=== PATIENT | male | born 1970 | race Caucasian/White ===

== ENCOUNTER → 2020-12-04 14:54 | Outpatient (BNVA) | payer OTHER, SELFPAY | PROVIDERS: Visit Provider Nurse Practitioner Family | DX: Z20.828 Contact with and (suspected) exposure to other viral communicable diseases (principal) | CPT/HCPCS: 87400; 87635 ==

== ENCOUNTER → 2021-05-13 13:36 | Outpatient (BNVA) | payer OTHER, SELFPAY | PROVIDERS: Visit Provider Nurse Practitioner Family | DX: Z20.822 Contact with and (suspected) exposure to COVID-19 (principal) | CPT/HCPCS: 87635 ==

== ENCOUNTER 2021-05-20 11:22 | Outpatient (CLI) | payer OTHER, SELFPAY | END 2021-05-20 11:23 | disposition home or self-care (01) | PROVIDERS: PCP Family Medicine; Visit Provider Family Medicine | DX: B37.42 Candidal balanitis (principal); Z21 Asymptomatic human immunodeficiency virus [HIV] infection status; B37.2 Candidiasis of skin and nail; R63.4 Abnormal weight loss; R53.83 Other fatigue; Z76.89 Persons encountering health services in other specified circumstances | CPT/HCPCS: 36415; 80053; 80061; 84443; 85025; 86355; 86359; 86480; 87536 ==

== ENCOUNTER → 2021-05-28 10:42 | Outpatient (BNVA) | payer OTHER, SELFPAY | PROVIDERS: PCP Family Medicine; Visit Provider Family Medicine | DX: E11.65 Type 2 diabetes mellitus with hyperglycemia (principal); R11.2 Nausea with vomiting, unspecified; Z21 Asymptomatic human immunodeficiency virus [HIV] infection status | CPT/HCPCS: 80048; 83036 ==

== ENCOUNTER 2021-06-02 17:23 | Emergency (ER) | payer OTHER, SELFPAY ==
[2021-06-02 17:41] VITALS: BP 116/78; PULSE 108; RESP 18; TEMP 37.2; O2SAT 95
--- NOTE | 2021-06-02 18:31 | ECG_ITS ---
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 Measurements Intervals [place] Rate: 76 P: 52 OH: 183 QRS: 23 QRSD: 98 T: 87 QT: 392 QTc: 441 Interpretive Statements SINUS RHYTHM POSSIBLE RIGHT VENTRICULAR CONDUCTION DELAY [RSR (QR) IN V1/V2] ANTERIOR MYOCARDIAL INFARCTION , PROBABLY RECENT [40+ ms Q WAVE AND/OR ST/T ABNORMALITY IN V3/V4] No previous ECG available for comparison Electronically Signed On 06-03-2021 17:11:40 CDT by Antwon Vazquez M.D. [id number]
--- NOTE | 2021-06-03 01:13 | ED_ITS ---
Documented by User: JEAN-PAUL Qureshi 06/04/21 07:00 HPI - General Adult General: Chief complaint: General Medical Stated complaint: LOSS/VOICE, H/A, DIZZY, RECENT DX DIABETES Time Seen by Provider: 06/03/21 00:56 Source: patient Mode of arrival: ambulatory Limitations: no limitations History of Present Illness: HPI narrative: Patient is a nice 50-year-old male who presents to ED today with a main complaint of feeling fatigued. He also has a complaint of hoarseness. He is not having any difficulty swallowing or dysphagia. He states he is not having any pain currently. States he feels wobbly on my feet but was able to walk through the emergency department to his room without assistance and without difficulty. States I have trouble thin anay . Patient tells me he is a newly diagnosed diabetic and has not been checking his blood sugars at home. Onset (ago): day(s) Relieving factors: none Exacerbating factors: none Associated symptoms: Deny chest pain, confusion, diaphoresis, dyspnea, headach e(s), nausea, rash, palpitations, syncope or vomiting Review of Systems Const: Reports: fatigue; Denies: fever(s), chills, body aches, change in appetite, change in weight, night sweats or diaphoresis Eyes: Denies: change in vision, blurry vision, photophobia, floaters or seeing flashes ENMT: Reports: hoarseness; Denies: throat pain, uvular edema, enlarged tonsils, odynophagia, nasal discharge or nasal congestion Card: Denies: chest pain, palpitations, irregular heart rhythm, lighth eadedness, syncope or dyspnea on exertion Resp: Denies: dyspnea, productive cough or pain on inspiration GI: Denies: abdominal pain, nausea, vomiting, heartburn or diarrhea : Denies: difficulty urinating or dysuria Musc: Denies: neck pain, back pain or joint pain Skin/Breast: Denies: rash Neuro: Reports: difficulty communicating thoughts; Denies: headache(s), numbness in extremities, weakness in extremities, sensory changes, lack of coordination, frequent falls, dizziness, vertigo, confusion, behavioral changes, Slurred speech present or seizure-like activity [facility] ED PFSH: Medical History HIV positive Social History Smoking and tobacco status: never smoked Alcohol intake: current Alcohol intake frequency: holidays/special occasions only Physical Exam Const: COMMON NORMALS: no acute distress, average body habitus, patient oriented x3, no limitations, healthy appearing, alert and well nourished GENERAL APPEARANCE: cooperative ORIENTATION/CONSCIOUSNESS: Yes awake, Yes oriented to person, Yes oriented to place and Yes oriented to time HENMT: COMMON NORMALS: normocephalic and atraumatic HEAD & SCALP: normocephalic and atraumatic MOUTH: Normal oral and palatal mucosa present, lip normal and tongue normal THROAT: posterior oropharynx normal, tonsils normal and uvula midline; no uvular edema Neck/C-Spine: COMMON NORMALS: full ROM, no lymphadenopathy, supple and no meningeal signs Chest: COMMONS NORMALS: normal inspection of the chest Resp: COMMON NORMALS: normal respiratory effort and clear to auscultation bi laterally AUSCULTATION: clear to auscultation bilaterally Cardio: COMMON NORMALS: regular rate and regular rhythm RATE: regular rate RHYTHM: regular rhythm GI: COMMON NORMALS: Normal to inspection, nondistended, normoactive bowel sounds present, Soft to palpation, non-tender, No hepatosplenomegaly present and no masses PALPATION: Yes Soft to palpation and Yes No hepatosplenomegaly present : COMMON NORMALS: Yes no CVA tenderness BLADDER/KIDNEY EXAM: Yes no CVA tenderness Back/Pelvis: COMMON NORMALS: no CVA tenderness and thoracic and lumbar spine normal to inspection Extremity: COMMON NORMALS: normal to inspection, no calf tenderness and no pedal edema Neuro: BC COMA SCALE: document GCS findings [place] coma scale eye opening: Spontaneous Bc coma scale verbal response: Orientated Bc coma scale motor response: Obey commands Bc coma scale total score: 15 COMMON NORMALS: patient oriented x3 SENSORIUM/ORIENTATION: Yes alert, Yes oriented to person, Yes oriented to place and Yes oriented to time MENINGEAL SIGNS: Yes no meningeal signs Skin: COMMON NORMALS: no rashes or lesions noted GENERAL SKIN EXAM: no rashes or lesions noted Course Vital Signs: Vital signs: Vital Signs Temperature 98.8 F 06/03/21 03:53 Pulse Rate 81 06/03/21 03:53 Respiratory Rate 16 06/03/21 03:53 Blood Pressure 92/68 06/03/21 03:53 Pulse Oximetry 95 06/03/21 03:53 MDM - General Adult MDM Narrative: Medical decision making narrative: Care transferred to Dr. Baires at shift end pending work up. Lab Data: Labs: Lab Results 06/03/21 06/03/21 06/03/21 Range/Units 01:30 02:53 02:54 WBC 2.6 L (4.0-10.0) 10^3/ uL RBC 4.43 (4.1-5.3) 10^6/u L Hgb 12.9 (11.7-16.6) g/dL Hct 37.8 L (42.0-52.0) % MCV 85.3 (80-94) fl MCH 29.1 (28.0-34.0) pg MCHC 34.1 (30.0-36.0) g/dL RDW 11.9 L (12.1-15.1) % Plt Count 125 L (130-400) 10^3/c mm MPV 11.4 H (7.4-10.4) fL Neut % (Auto) 42.4 % Lymph % (Auto) 38.9 % [place] % (Auto) 16.4 % Eos % (Auto) 1.5 % Baso % (Auto) 0.4 % Neut # (Auto) 1.11 L (1.8-7.7) 10^3/u L Lymph # (Auto) 1.0 (0.8-4.8) 10^3/u L [place] # (Auto) 0.4 (0.2-0.9) 10^3/u L Eos # (Auto) 0.0 (0.0-0.8) 10^3/u L Baso # (Auto) 0.0 (0.0-0.1) 10^3/u L Nucleated RBC % (a uto) 0 % Nucleated RBCs # 0.0 /100WBC Specimen Type Arterial Sample Site Brachial, right ABG pH 7.41 (7.35-7.45) ABG pCO2 38.7 (35-45) mmHg ABG pO2 64.0 L (80.0-100.0) mmH g ABG HCO3 24.7 (22-26) mmol/L ABG O2 Saturation 93.2 ABG Base Excess 0.2 (-2.0-2.0) mmol/ L Marlon Test N/a A-a O2 Gradient 4.9 L (5-10) mmHg Hematocrit 42.5 (42-52) % Hgb O2 Saturation 92.1 L (95-100) % Carboxyhemoglobin 0.7 (0.4-20.1) %THgb Methemoglobin 0.4 (0.4-1.5) % Total Hemoglobin 13.9 L (14-18) g/dL Sodium 137.0 (131-143) mmol/L Potassium 3.9 (3.5-5.0) mmol/L Glucose 197.0 H (70-115) mg/dL Ionized Calcium 1.2 (1.1-1.4) mmol/L O2 Delivery Device Room air FiO2 21.0 % Senior C Software Engineer ID Rieri Chloride (98-107) mmol/L Carbon Dioxide (22-29) mmol/L Anion Gap (5-19) BUN (6-20) mg/dL Creatinine (0.7-1.2) mg/dL GFR Calculation (90-130) mL/min Calculated Osmolal ity (285-295) mOsm/k g Calcium (8.5-10.5) mg/dL Total Bilirubin (0.15-1.2) mg/dL AST (0-40) U/L ALT (0-41) U/L Alkaline Phosphata se (40-130) IU/L Total Protein (6.6-8.7) g/dL Albumin (3.5-5.2) g/dL Globulin (1.3-4.6) g/dL Serum Ketones (Negative) SARS-CoV-2 Ag (Rap id) Negative (Negative) 06/03/21 06/03/21 Range/Units 02:54 02:54 WBC (4.0-10.0) 10^3/ uL RBC (4.1-5.3) 10^6/u L Hgb (11.7-16.6) g/dL Hct (42.0-52.0) % MCV (80-94) fl MCH (28.0-34.0) pg MCHC (30.0-36.0) g/dL RDW (12.1-15.1) % Plt Count (130-400) 10^3/c mm MPV (7.4-10.4) fL Neut % (Auto) % Lymph % (Auto) % [place] % (Auto) % Eos % (Auto) % Baso % (Auto) % Neut # (Auto) (1.8-7.7) 10^3/u L Lymph # (Auto) (0.8-4.8) 10^3/u L [place] # (Auto) (0.2-0.9) 10^3/u L Eos # (Auto) (0.0-0.8) 10^3/u L Baso # (Auto) (0.0-0.1) 10^3/u L Nucleated RBC % (a uto) % Nucleated RBCs # /100WBC Specimen Type Sample Site ABG pH (7.35-7.45) ABG pCO2 (35-45) mmHg ABG pO2 (80.0-100.0) mmH g ABG HCO3 (22-26) mmol/L ABG O2 Saturation ABG Base Excess (-2.0-2.0) mmol/ L Marlon Test A-a O2 Gradient (5-10) mmHg Hematocrit (42-52) % Hgb O2 Saturation (95-100) % Carboxyhemoglobin (0.4-20.1) %THgb Methemoglobin (0.4-1.5) % Total Hemoglobin (14-18) g/dL Sodium 133 L (131-143) mmol/L Potassium 4.2 (3.5-5.0) mmol/L Glucose 186 H (70-115) mg/dL Ionized Calcium (1.1-1.4) mmol/L O2 Delivery Device FiO2 % Senior C Software Engineer ID Chloride 98 (98-107) mmol/L Carbon Dioxide 26 (22-29) mmol/L Anion Gap 13.2 (5-19) BUN 10 (6-20) mg/dL Creatinine 0.6 L (0.7-1.2) mg/dL GFR Calculation 142.0 H (90-130) mL/min Calculated Osmolal ity 280 L (285-295) mOsm/k g Calcium 9.5 (8.5-10.5) mg/dL Total Bilirubin 0.5 (0.15-1.2) mg/dL AST 25 (0-40) U/L ALT 22 (0-41) U/L Alkaline Phosphata se 82 (40-130) IU/L Total Protein 8.1 (6.6-8.7) g/dL Albumin 3.7 (3.5-5.2) g/dL Globulin 4.4 (1.3-4.6) g/dL Serum Ketones Negative (Negative) SARS-CoV-2 Ag (Rap id) (Negative) EKG Data^: EKG 1: Computer generated interpretation: Head CT 06/03/21 02:58 IMPRESSION: No acute intracranial abnormality. Radiation Dose CTDIVOL = (mGy): DLP = 868.14 (mGy-cm) Discharge Plan Discharge Patient Disposition: Home Clinical Impression: Weakness Condition: Stable Prescriptions: No Action cholecalciferol (vitamin D3) 50 mcg (2,000 unit) capsule 50 mcg PO DAILY RF: 0 vitamin B complex [B Complex-Vitamin B12] Tablet 1 tab PO DAILY RF: 0 loratadine [Claritin] 10 mg tablet 10 mg PO DAILY RF: 0 nystatin 100,000 unit/gram cream 1 applic topical TID Qty: 30 RF: 0 metformin 500 mg tablet 500 mg PO BID Qty: 60 RF: 2 (DME) diabetic supplies, miscellan. Misc See Rx Instructions .Route Qty: 1 RF: 2 ondansetron HCl [Zofran] 4 mg tablet 4 mg PO Q8H PRN (Reason: nausea and vomiting) Qty: 20 RF: 0 Discharge Orders: Discharge ED (Routine); Ordered 06/03/21 Ordered By: Topher Baires Referrals: Tavo Liu DO [Primary Care Provider] - 1-3 days Discharge Diet: Advance as tolerated Discharge Activity: Resume usual activity Patient Instructions: Weakness (ED) Coding Level of Care Code ED Transformer Assembler for Chg Fwd Exam Comprehensive Documented by User: Topher Baires MD 06/03/21 04:54 HPI - General Adult General: Chief complaint: General Medical Stated complaint: LOSS/VOICE, H/A, DIZZY, RECENT DX DIABETES Time Seen by Provider: 06/03/21 00:56 PFSH ED PFSH: Medical History HIV positive Social History Smoking and tobacco status: never smoked Alcohol intake: current Alcohol intake frequency: holidays/special occasions only Course Vital Signs: Vital signs: Vital Signs Temperature 98.8 F 06/03/21 03:53 Pulse Rate 81 06/03/21 03:53 Respiratory Rate 16 06/03/21 03:53 Blood Pressure 92/68 06/03/21 03:53 Pulse Oximetry 95 06/03/21 03:53 MDM - General Adult MDM Narrative: Medical decision making narrative: Patient presents here with fatigue weakness. I took over from [facility]. He feels improved here. His head CT here is normal. He does have some slight leukopenia no signs of infection. He is to follow-up his PCP and return to ER if worsening. He unde rstands agrees to plan. Lab Data: Labs: Lab Results 06/03/21 06/03/21 06/03/21 Range/Units 01:30 02:53 02:54 WBC 2.6 L (4.0-10.0) 10^3/ uL RBC 4.43 (4.1-5.3) 10^6/u L Hgb 12.9 (11.7-16.6) g/dL Hct 37.8 L (42.0-52.0) % MCV 85.3 (80-94) fl MCH 29.1 (28.0-34.0) pg MCHC 34.1 (30.0-36.0) g/dL RDW 11.9 L (12.1-15.1) % Plt Count 125 L (130-400) 10^3/c mm MPV 11.4 H (7.4-10.4) fL Neut % (Auto) 42.4 % Lymph % (Auto) 38.9 % [place] % (Auto) 16.4 % Eos % (Auto) 1.5 % Baso % (Auto) 0.4 % Neut # (Auto) 1.11 L (1.8-7.7) 10^3/u L Lymph # (Auto) 1.0 (0.8-4.8) 10^3/u L [place] # (Auto) 0.4 (0.2-0.9) 10^3/u L Eos # (Auto) 0.0 (0.0-0.8) 10^3/u L Baso # (Auto) 0.0 (0.0-0.1) 10^3/u L Nucleated RBC % (a uto) 0 % Nucleated RBCs # 0.0 /100WBC Specimen Type Arterial Sample Site Brachial, right ABG pH 7.41 (7.35-7.45) ABG pCO2 38.7 (35-45) mmHg ABG pO2 64.0 L (80.0-100.0) mmH g ABG HCO3 24.7 (22-26) mmol/L ABG O2 Saturation 93.2 ABG Base Excess 0.2 (-2.0-2.0) mmol/ L Marlon Test N/a A-a O2 Gradient 4.9 L (5-10) mmHg Hematocrit 42.5 (42-52) % Hgb O2 Saturation 92.1 L (95-100) % Carboxyhemoglobin 0.7 (0.4-20.1) %THgb Methemoglobin 0.4 (0.4-1.5) % Total Hemoglobin 13.9 L (14-18) g/dL Sodium 137.0 (131-143) mmol/L Potassium 3.9 (3.5-5.0) mmol/L Glucose 197.0 H (70-115) mg/dL Ionized Calcium 1.2 (1.1-1.4) mmol/L O2 Delivery Device Room air FiO2 21.0 % Senior C Software Engineer ID Rieri Chloride (98-107) mmol/L Carbon Dioxide (22-29) mmol/L Anion Gap (5-19) BUN (6-20) mg/dL Creatinine (0.7-1.2) mg/dL GFR Calculation (90-130) mL/min Calculated Osmolal ity (285-295) mOsm/k g Calcium (8.5-10.5) mg/dL Total Bilirubin (0.15-1.2) mg/dL AST (0-40) U/L ALT (0-41) U/L Alkaline Phosphata se (40-130) IU/L Total Protein (6.6-8.7) g/dL Albumin (3.5-5.2) g/dL Globulin (1.3-4.6) g/dL Serum Ketones (Negative) SARS-CoV-2 Ag (Rap id) Negative (Negative) 06/03/21 06/03/21 Range/Units 02:54 02:54 WBC (4.0-10.0) 10^3/ uL RBC (4.1-5.3) 10^6/u L Hgb (11.7-16.6) g/dL Hct (42.0-52.0) % MCV (80-94) fl MCH (28.0-34.0) pg MCHC (30.0-36.0) g/dL RDW (12.1-15.1) % Plt Count (130-400) 10^3/c mm MPV (7.4-10.4) fL Neut % (Auto) % Lymph % (Auto) % [place] % (Auto) % Eos % (Auto) % Baso % (Auto) % Neut # (Auto) (1.8-7.7) 10^3/u L Lymph # (Auto) (0.8-4.8) 10^3/u L [place] # (Auto) (0.2-0.9) 10^3/u L Eos # (Auto) (0.0-0.8) 10^3/u L Baso # (Auto) (0.0-0.1) 10^3/u L Nucleated RBC % (a uto) % Nucleated RBCs # /100WBC Specimen Type Sample Site ABG pH (7.35-7.45) ABG pCO2 (35-45) mmHg ABG pO2 (80.0-100.0) mmH g ABG HCO3 (22-26) mmol/L ABG O2 Saturation ABG Base Excess (-2.0-2.0) mmol/ L Marlon Test A-a O2 Gradient (5-10) mmHg Hematocrit (42-52) % Hgb O2 Saturation (95-100) % Carboxyhemoglobin (0.4-20.1) %THgb Methemoglobin (0.4-1.5) % Total Hemoglobin (14-18) g/dL Sodium 133 L (131-143) mmol/L Potassium 4.2 (3.5-5.0) mmol/L Glucose 186 H (70-115) mg/dL Ionized Calcium (1.1-1.4) mmol/L O2 Delivery Device FiO2 % Senior C Software Engineer ID Chloride 98 (98-107) mmol/L Carbon Dioxide 26 (22-29) mmol/L Anion Gap 13.2 (5-19) BUN 10 (6-20) mg/dL Creatinine 0.6 L (0.7-1.2) mg/dL GFR Calculation 142.0 H (90-130) mL/min Calculated Osmolal ity 280 L (285-295) mOsm/k g Calcium 9.5 (8.5-10.5) mg/dL Total Bilirubin 0.5 (0.15-1.2) mg/dL AST 25 (0-40) U/L ALT 22 (0-41) U/L Alkaline Phosphata se 82 (40-130) IU/L Total Protein 8.1 (6.6-8.7) g/dL Albumin 3.7 (3.5-5.2) g/dL Globulin 4.4 (1.3-4.6) g/dL Serum Ketones Negative (Negative) SARS-CoV-2 Ag (Rap id) (Negative) Imaging Data^: CT Head: Attestation: I personally reviewed and interpreted this imaging study as follows: Radiologist's impression: [address] [address] [address] Scan Report Signed Patient: Farhad Dobbs Unit #: [id number] : 1970 Age/Sex: 50 / M ADM Date: 06/02/21 Loc: ER Room/Bed: Attending Dr: Ordering Provider/Ordering MD: Brook Chance Date of Service: 06/03/21 Procedure(s): CT head wo con* [id number] Accession Number(s): [id number] Report Number: [id number] PROCEDURE INFORMATION: Exam: CT Head Without Contrast Exam date and time: 06/03/2021 2:58 AM Age: 50 years old Clinical indication: Altered mental status/memory loss and walking, difficulty; Confusion or disorientation; Additional info: Unsteady gait, trouble concentrating/thinking TECHNIQUE: Imaging protocol: Computed tomography of the head without contrast. Radiation optimization: All CT scans at this facility use at least one of these dose optimization techniques: automated exposure control; mA and/or kV adjustment per patient size (includes targeted exams where dose is matched to clinical indication); or iterative reconstruction. COMPARISON: No relevant prior studies available. RADIATION DOSE METRICS: Total DLP (mGy-cm): 868.14 FINDINGS: Brain: Normal. No hemorrhage. Unremarkable white matter. No mass effect. Cerebral ventricles: No ventriculomegaly. Paranasal sinuses: There is near complete opacification of the left maxillary sinus. There is partial opacification of the left ethmoid air cells. Other paranasal sinuses are well aerated. Mastoid air cells: Visualized mastoid air cells are well aerated. Bones/joints: Unremarkable. No acute fracture. Soft tissues: Unremarkable. CT/CT head wo con* [id number] IMPRESSION: No acute intracranial abnormality. Radiation Dose CTDIVOL = (mGy): DLP = 868.14 (mGy-cm) Dictated By: Jaime Tim Signed By: Jaime Tim Signed Date/Time: 06/03/21 0440 EKG Data^: EKG 1: Attestation: I personally reviewed and interpreted this EKG as follows: EKG interpretation date: 06/03/21 EKG interpretation time: 03:10 Interpretation: nsr hr [address] or t wave abnormalities qrs 98 qtc 422 Computer generated interpretation: Head CT 06/03/21 02:58
[2021-06-03 02:03] LABS: ABG PCO2 38.7 mmHg (35-45); ABG PH Result 7.41 (7.35-7.45); Alveolar-Arterial Oxygen Gradi 4.9 mmHg (5-10); Arterial Blood Gas Hematocrit 42.5 % (42-52); Base Excess ABG 0.2 mmol/L (-2.0-2.0); Blood Gas Sample Site Brachial, right; Blood Gas Sample Type Arterial; Carboxyhemoglobin 0.7 %THgb (0.4-20.1); HCO3 ABG 24.7 mmol/L (22-26); HGB O2 Sat 92.1 % (95-100); Ionized Calcium Level - ABG 1.2 mmol/L (1.1-1.4); Methemoglobin 0.4 % (0.4-1.5); Oxygen Saturation ABG 93.2; Potassium Level - ABG 3.9 mmol/L (3.5-5.0); Total Hemoglobin 13.9 g/dL (14-18)
[2021-06-03 02:04] LABS: Oxygen Device ROOM AIR
--- NOTE | 2021-06-03 02:58 | CTR_ITS ---
PROCEDURE INFORMATION: Exam: CT Head Without Contrast Exam date and time: 06/03/2021 2:58 AM Age: 50 years old Clinical indication: Altered mental status/memory loss and walking, difficulty; Confusion or disorientation; Additional info: Unsteady gait, trouble concentrating/thinking TECHNIQUE: Imaging protocol: Computed tomography of the head without contrast. Radiation optimization: All CT scans at this facility use at least one of these dose optimization techniques: automated exposure control; mA and/or kV adjustment per patient size (includes targeted exams where dose is matched to clinical indication); or iterative reconstruction. COMPARISON: No relevant prior studies available. RADIATION DOSE METRICS: Total DLP (mGy-cm): 868.14 FINDINGS: Brain: Normal. No hemorrhage. Unremarkable white matter. No mass effect. Cerebral ventricles: No ventriculomegaly. Paranasal sinuses: There is near complete opacification of the left maxillary sinus. There is partial opacification of the left ethmoid air cells. Other paranasal sinuses are well aerated. Mastoid air cells: Visualized mastoid air cells are well aerated. Bones/joints: Unremarkable. No acute fracture. Soft tissues: Unremarkable. CT/CT head wo con* [id number] IMPRESSION: No acute intracranial abnormality. Radiation Dose CTDIVOL = (mGy): DLP = 868.14 (mGy-cm)
[2021-06-03 03:00] LABS: Basophils % 0.4 %; Eosinophils % 1.5 %; Hematocrit 37.8 % (42.0-52.0); Hemoglobin 12.9 g/dL (11.7-16.6); Lymphocytes % 38.9 %; Mean Corpuscular HGB Conc 34.1 g/dL (30.0-36.0); Mean Corpuscular Hemoglobin 29.1 pg (28.0-34.0); Mean Corpuscular Volume 85.3 fl (80-94); Mean Platelet Volume 11.4 fL (7.4-10.4); Monocytes # 0.4 10^3/uL (0.2-0.9); Monocytes % 16.4 %; Neutrophils # 1.11 10^3/uL (1.8-7.7); Neutrophils % 42.4 %; Nucleated Red Blood Cells % 0 %; Platelet Count 125 10^3/cmm (130-400); Red Blood Count 4.43 10^6/uL (4.1-5.3); Red Cell Distribution Width 11.9 % (12.1-15.1); White Blood Count 2.6 10^3/uL (4.0-10.0)
[2021-06-03 03:14] LABS: Albumin Level 3.7 g/dL (3.5-5.2); Alkaline Phosphatase 82 IU/L (40-130); Anion Gap 13.2 (5-19); Aspartate Amino Transferase 25 U/L (0-40); Blood Urea Nitrogen 10 mg/dL (6-20); Calcium 9.5 mg/dL (8.5-10.5); Carbon Dioxide 26 mmol/L (22-29); Chloride 98 mmol/L (98-107); Globulin 4.4 g/dL (1.3-4.6); Glucose 186 mg/dL (65-115); Osmolality Calculated 280 mOsm/kg (285-295); Potassium 4.2 mmol/L (3.5-5.1); Sodium 133 mmol/L (136-145); Total Bilirubin 0.5 mg/dL (0.15-1.2); Total Protein 8.1 g/dL (6.6-8.7)
[2021-06-03 03:18] LABS: Ketone (Acetest) Serum Negative (Negative)
[2021-06-03 03:24] LABS: Alanine Aminotransferase 22 U/L (0-41)
[2021-06-03 03:28] LABS: SARS Covid-2 Antigen Negative (Negative)
[2021-06-03 03:53] VITALS: BP 92/68; PULSE 81; RESP 16; TEMP 37.1; O2SAT 95
[2021-06-03] MEDS: sodium chloride 0.9% 1,000 ML 999 ML IV (03:53)
== END 2021-06-03 05:22 | disposition home or self-care (01) ==
PROVIDERS: Physician Assistant; Emergency Provider Emergency Medicine; PCP Family Medicine
DX: R53.1 Weakness (principal); E11.9 Type 2 diabetes mellitus without complications; Z79.84 Long term (current) use of oral hypoglycemic drugs; Z21 Asymptomatic human immunodeficiency virus [HIV] infection status
CPT/HCPCS: 36600; 70450; 80051; 80053; 82009; 82330; 82805; 85025; 86361; 87426; 93005; 96360; 99283; J7030

== ENCOUNTER → 2021-06-23 10:16 | Outpatient (BNVA) | payer OTHER, SELFPAY | PROVIDERS: PCP Family Medicine; Visit Provider Family Medicine | DX: Z21 Asymptomatic human immunodeficiency virus [HIV] infection status; R50.9 Fever, unspecified; R11.2 Nausea with vomiting, unspecified; W57.XXXA Bitten or stung by nonvenomous insect and other nonvenomous arthropods, initial encounter | CPT/HCPCS: 81000; 86592; 86618; 86666; 86705; 86706; 86708; 86757; 86803; 87340; 87491; 87530; 87591 ==

== ENCOUNTER → 2021-06-24 00:01 | Outpatient (BNVA) | payer OTHER, SELFPAY | PROVIDERS: PCP Family Medicine; Visit Provider Family Medicine | DX: Z21 Asymptomatic human immunodeficiency virus [HIV] infection status; R11.2 Nausea with vomiting, unspecified; R50.81 Fever presenting with conditions classified elsewhere | CPT/HCPCS: 86708 ==

== ENCOUNTER 2021-06-25 15:45 | Outpatient (CLI) | payer OTHER, SELFPAY ==
[2021-06-27 16:42] LABS: Toxoplasma AB IGG >400.00 IU/mL; Toxoplasma AB IGM <8.00 AU/mL
== END 2021-06-25 15:46 | disposition home or self-care (01) ==
LOC: LAB 15:52
PROVIDERS: PCP Family Medicine; Visit Provider Family Medicine
DX: Z21 Asymptomatic human immunodeficiency virus [HIV] infection status (principal); A53.9 Syphilis, unspecified
CPT/HCPCS: 36415; 86592; 86777; 86780; 87491; 87591

== ENCOUNTER 2021-07-22 12:40 | Outpatient (CLI) | payer OTHER, SELFPAY ==
--- NOTE | 2021-07-22 12:50 | FL_ITS ---
WS: [id number] LUMBAR PUNCTURE UNDER FLUOROSCOPY: OBTAIN CSF FOR ANALYSIS HISTORY: EVALUATE FOR NEUROSYPHILIS IN PATIENT W/HIV COMPARISON: None available. FLUOROSCOPY TIME: 0.9 minutes. Procedure, complications, and risk and benefits explained to the patient. Consent was obtained. Recen t laboratory work and medication are reviewed prior to procedure. Skin over the lumbar is cleansed with ChloraPrep and anesthetized with 1% buffered lidocaine. Access into the thecal sac is achieved. CSF is removed in a sterile manner and placed in the sterile tubes. Approximately 12 ml is removed without difficulty. No complications are encountered. CSF this into the laboratory for analysis as requested. FL/FL guided lumbarpunc dx* [id number] IMPRESSION: Uncomplicated lumbar puncture for CSF. Specimen collected and sent for analysis as requested.
[2021-07-22 15:38] LABS: CSF Mononuclear # 0.004 10^3/uL (50-90); Mononuclear WBC CSF % 100 % (50-90); Polynuclear WBC CSF % 0 % (0-10); Red Blood Cell CSF 0 10^3/uL (0-0); White Blood Cell CSF 4 /uL (0-5)
[2021-07-22 16:08] LABS: Glucose CSF 51 mg/dL (40-70); Total Protein CSF 43 mg/dL (15-45)
[2021-07-22 16:35] LABS: Appearance CSF CLEAR (CLEAR); Color CSF COLORLESS (COLORLESS)
[2021-07-24 14:17] LABS: HIV RNA (CPY/ML) 2.92 (NOT DETECTED); HIV RNA LOG 831 copies/mL (NOT DETECTED)
[2021-07-26 23:07] LABS: VDRL on CSF NON-REACTIVE
--- NOTE | 2021-07-31 10:19 | PM.MISC ---
Miscellaneous Note Purpose of Documentation: test results Note: VDRL testing from CSF negative. CSF analysis, cell count and gram stain, culture negative. Cryptococcal Ag negative. Overall work up negative for neurosyphilis. 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 Repeat RPR titre in 4 months[address] coordinate with [address] Liu's office for administration of abx.
== END 2021-07-22 12:41 | disposition home or self-care (01) ==
LOC: RAD 12:46
PROVIDERS: PCP Family Medicine; Visit Provider Student in an Organized Health Care Education/Training Program
DX: A53.9 Syphilis, unspecified (principal); Z21 Asymptomatic human immunodeficiency virus [HIV] infection status
CPT/HCPCS: 62328; 82945; 84157; 86592; 87070; 87075; 87205; 87327; 87536; 89050

== ENCOUNTER → 2021-09-01 08:52 | Outpatient (BNVA) | payer OTHER, SELFPAY | PROVIDERS: PCP Family Medicine; Visit Provider Family Medicine | DX: E11.42 Type 2 diabetes mellitus with diabetic polyneuropathy (principal); E11.65 Type 2 diabetes mellitus with hyperglycemia | CPT/HCPCS: 83036; 85025 ==

== ENCOUNTER → 2021-09-09 11:08 | Outpatient (BNVA) | payer OTHER, SELFPAY | PROVIDERS: PCP Family Medicine; Visit Provider Student in an Organized Health Care Education/Training Program | DX: Z21 Asymptomatic human immunodeficiency virus [HIV] infection status (principal) | CPT/HCPCS: 80053; 87536 ==

== ENCOUNTER → 2021-10-16 15:36 | Outpatient (BNVA) | payer OTHER, SELFPAY | PROVIDERS: PCP Family Medicine; Visit Provider Student in an Organized Health Care Education/Training Program | DX: B20 Human immunodeficiency virus [HIV] disease (principal) | CPT/HCPCS: 80053; 81003; 85025; 87536 ==

== ENCOUNTER → 2021-11-26 16:40 | Outpatient (BNVA) | payer OTHER, MEDICAID, SELFPAY | PROVIDERS: PCP Family Medicine; Visit Provider Student in an Organized Health Care Education/Training Program | DX: B20 Human immunodeficiency virus [HIV] disease (principal) | CPT/HCPCS: 86360; 87536 ==

== ENCOUNTER → 2022-01-15 15:00 | Outpatient (BNVA) | payer MEDICAID, SELFPAY | PROVIDERS: PCP Family Medicine; Visit Provider Family Medicine | DX: R19.7 Diarrhea, unspecified (principal); G47.00 Insomnia, unspecified; F45.21 Hypochondriasis; B20 Human immunodeficiency virus [HIV] disease | CPT/HCPCS: 87506 ==

== ENCOUNTER 2022-03-20 09:35 | Outpatient (CLI) | payer OTHER, SELFPAY ==
--- NOTE | 2022-03-20 10:06 | XR_ITS ---
WS: [email or web address] Exam: XR cervical spine 3V* [id number] Date/Time of Exam: 03/20/2022 10:06 AM Reason For Exam: NECK BACK PAIN No acute fracture or dislocation. Developmental fusion of C2 and C3. Disc spaces are relatively well maintained. Normal paraspinal soft tissues. The odontoid is intact. Mild facet DJD. The lower plate o f C7 is obscured. XR/XR cervical spine 3V* [id number] IMPRESSION: 1. No fracture or malalignment. 2. Mild facet DJD. Developmental fusion of C2 and C3.
--- NOTE | 2022-03-20 10:06 | XR_ITS ---
WS: [id number] Exam: XR lumbar spine 2-3V* [id number] Date/Time of Exam: 03/20/2022 10:06 AM Reason For Exam: NECK BACK PAIN Comparison 07/22/2021. No fracture or dislocation. Degenerative vacuum disc at L5-S1. Facet arthropathy at L5-S1. Remaining discs are well maintained. There appears to be partial fusion of the bilateral SI joints. XR/XR lumbar spine 2-3V* [id number] IMPRESSION: 1. Disc degeneration and facet arthropathy at L5-S1. 2. No fracture or malalignment. 3. Partial fusion of the bilateral SI joints.
== END 2022-03-20 09:36 | disposition home or self-care (01) ==
LOC: RAD 09:40
PROVIDERS: PCP Family Medicine; Visit Provider Dermatology
DX: M54.2 Cervicalgia (principal); M54.9 Dorsalgia, unspecified; M47.817 Spondylosis without myelopathy or radiculopathy, lumbosacral region; M51.37 Other intervertebral disc degeneration, lumbosacral region; M43.28 Fusion of spine, sacral and sacrococcygeal region; M47.812 Spondylosis without myelopathy or radiculopathy, cervical region; M43.22 Fusion of spine, cervical region
CPT/HCPCS: 72040; 72100

== ENCOUNTER 2022-04-24 15:07 | Outpatient (CLI) | payer MEDICAID, SELFPAY ==
[2022-04-29 07:37] LABS: HIV RNA (CPY/ML) 6.18 (NOT DETECTED); HIV RNA LOG 1530000 copies/mL (NOT DETECTED)
== END 2022-04-24 15:08 | disposition home or self-care (01) ==
LOC: LAB 15:10
PROVIDERS: PCP Family Medicine; Visit Provider Student in an Organized Health Care Education/Training Program
DX: B20 Human immunodeficiency virus [HIV] disease (principal)
CPT/HCPCS: 86355; 86357; 86359; 86360; 87536

== ENCOUNTER → 2022-04-28 15:52 | Outpatient (BNVA) | payer MEDICAID, SELFPAY | PROVIDERS: PCP Family Medicine; Visit Provider Family Medicine | DX: E11.65 Type 2 diabetes mellitus with hyperglycemia (principal); E11.42 Type 2 diabetes mellitus with diabetic polyneuropathy; G57.93 Unspecified mononeuropathy of bilateral lower limbs; A53.9 Syphilis, unspecified; G47.00 Insomnia, unspecified; F45.21 Hypochondriasis; R79.89 Other specified abnormal findings of blood chemistry; E53.8 Deficiency of other specified B group vitamins; Z21 Asymptomatic human immunodeficiency virus [HIV] infection status; A60.02 Herpesviral infection of other male genital organs; B00.9 Herpesviral infection, unspecified | CPT/HCPCS: 80053; 80061; 82306; 83036; 83735; 84153; 84443; 85025 ==

== ENCOUNTER → 2022-04-30 14:35 | Outpatient (BNVA) | payer MEDICAID, SELFPAY | PROVIDERS: PCP Family Medicine; Visit Provider Student in an Organized Health Care Education/Training Program | DX: B20 Human immunodeficiency virus [HIV] disease (principal); R21 Rash and other nonspecific skin eruption | CPT/HCPCS: 99213 ==

== ENCOUNTER → 2022-05-28 14:59 | Outpatient (BNVA) | payer MEDICAID, SELFPAY | PROVIDERS: PCP Family Medicine; Visit Provider Student in an Organized Health Care Education/Training Program | DX: B20 Human immunodeficiency virus [HIV] disease (principal); L73.9 Follicular disorder, unspecified; B00.9 Herpesviral infection, unspecified; B37.42 Candidal balanitis | CPT/HCPCS: 99213; 99215 ==

== ENCOUNTER 2022-05-29 10:42 | Outpatient (CLI) | payer MEDICAID, SELFPAY ==
[2022-05-30 20:37] LABS: HIV RNA (CPY/ML) 2.79 (NOT DETECTED); HIV RNA LOG 619 copies/mL (NOT DETECTED)
== END 2022-05-29 10:43 | disposition home or self-care (01) ==
PROVIDERS: PCP Family Medicine; Visit Provider Student in an Organized Health Care Education/Training Program
DX: B20 Human immunodeficiency virus [HIV] disease (principal)
CPT/HCPCS: 87536; 87641

== ENCOUNTER → 2022-07-23 15:24 | Outpatient (BNVA) | payer MEDICAID, SELFPAY | PROVIDERS: PCP Family Medicine; Visit Provider Student in an Organized Health Care Education/Training Program | DX: B20 Human immunodeficiency virus [HIV] disease (principal); A53.9 Syphilis, unspecified; N35.919 Unspecified urethral stricture, male, unspecified site; R13.10 Dysphagia, unspecified; R49.0 Dysphonia; K52.9 Noninfective gastroenteritis and colitis, unspecified; L73.9 Follicular disorder, unspecified; G63 Polyneuropathy in diseases classified elsewhere | CPT/HCPCS: 36415; 81003; 85025; 86360; 86592; 87491; 87536; 87591; 99214 ==

== ENCOUNTER → 2022-07-28 12:58 | Outpatient (BNVA) | payer MEDICAID, SELFPAY | PROVIDERS: PCP Family Medicine; Visit Provider Otolaryngology | DX: R13.10 Dysphagia, unspecified (principal); R49.0 Dysphonia | CPT/HCPCS: 31575; 99203; 99204 ==

== ENCOUNTER → 2022-08-07 09:57 | Outpatient (BNVA) | payer MEDICAID, SELFPAY | PROVIDERS: PCP Family Medicine; Visit Provider Surgery | DX: Z12.11 Encounter for screening for malignant neoplasm of colon (principal) | CPT/HCPCS: 99024; 99203 ==

== ENCOUNTER → 2022-08-10 13:48 | Outpatient (BNVA) | payer MEDICAID, SELFPAY | PROVIDERS: PCP Family Medicine; Visit Provider Urology | DX: N35.919 Unspecified urethral stricture, male, unspecified site (principal); R30.0 Dysuria; Z21 Asymptomatic human immunodeficiency virus [HIV] infection status; A60.02 Herpesviral infection of other male genital organs; E11.42 Type 2 diabetes mellitus with diabetic polyneuropathy; B37.42 Candidal balanitis; R35.89 Other polyuria | CPT/HCPCS: 51741; 51798; 52000; 81003; 99203 ==

== ENCOUNTER → 2022-09-02 10:32 | Outpatient (BNVA) | payer MEDICAID, SELFPAY | PROVIDERS: PCP Family Medicine; Visit Provider Family Medicine | DX: E11.65 Type 2 diabetes mellitus with hyperglycemia (principal); Z21 Asymptomatic human immunodeficiency virus [HIV] infection status; A60.02 Herpesviral infection of other male genital organs; B00.9 Herpesviral infection, unspecified; E11.42 Type 2 diabetes mellitus with diabetic polyneuropathy; B20 Human immunodeficiency virus [HIV] disease; G63 Polyneuropathy in diseases classified elsewhere; R79.89 Other specified abnormal findings of blood chemistry | CPT/HCPCS: 80053; 83036 ==

== ENCOUNTER → 2022-09-18 08:41 | Outpatient (BNVA) | payer MEDICAID, SELFPAY | PROVIDERS: PCP Family Medicine; Visit Provider Urology | DX: N35.919 Unspecified urethral stricture, male, unspecified site (principal); R30.0 Dysuria | CPT/HCPCS: 51741; 51798; 81003; 99213 ==

== ENCOUNTER 2022-10-07 06:32 | Day surgery (SDC) | payer MEDICAID, SELFPAY ==
[2022-10-01 08:35] VITALS: BMI 27.2
--- NOTE | 2022-10-07 06:41 | PM.HP ---
Providers/Chief Complaint Primary Care Provider: Tavo Liu DO Chief Complaint: Z12.11 History of Present Illness Farhad Dobbs is a 51 year old male here for colonoscopy Medications/Allergies Home Medications Medication Instructions Recorded Confirmed Last Taken Type loratadine 10 mg tablet (Claritin) 10 mg PO DAILY 05/20/21 10/06/22 09/30/22 History sulfamethoxazole 800 1 tab PO .mwf 90 days #30 tabs 07/22/21 10/06/22 09/30/22 Rx mg-trimethoprim 160 mg tablet (Bactrim DS) vitamin B complex (B 1 tab PO DAILY #30 tabs 04/28/22 10/06/22 10/01/22 Rx Complex-Vitamin B12 tablet) bictegravir 50 mg-emtricitabine 1 tab PO DAILY #90 tabs 05/01/22 10/06/22 10/01/22 Rx 200 mg-tenofovir alafenam 25 mg tablet (Biktarvy) lancets 30 gauge (OneTouch Delica ##100 08/11/22 10/06/22 Unknown Rx Plus Lancet) polymyxin B sulfate 10,000 1 drp ophthalmic (eye) Q3H 10 days 08/28/22 10/06/22 10/01/22 Rx unit-trimethoprim 1 mg/mL eye drops #10 mL blood sugar diagnostic (OneTouch #300 strips 09/02/22 10/06/22 Unknown Rx Ultra Test strips) cholecalciferol (vitamin D3) 50 50 mcg PO DAILY 30 days #90 caps 09/02/22 10/06/22 10/01/22 Rx mcg (2,000 unit) capsule metformin 500 mg tablet 500 mg PO BID #180 tabs 09/02/22 10/06/22 10/01/22 Rx pregabalin 25 mg capsule (Lyrica) 25 mg PO TID #90 caps 09/02/22 10/06/22 10/01/22 Rx semaglutide 0.25 mg or 0.5 mg (2 0.5 mg (0.4 mL) SUBCUT .weekly 09/02/22 10/06/22 09/25/22 Rx mg/1.5 mL) subcutaneous pen #1.5 mL injector (Ozempic) valacyclovir 1 gram tablet 1,000 mg PO DAILY 30 days #90 tabs 09/02/22 10/06/22 09/30/22 Rx (Valtrex) clonazepam 0.5 mg tablet 0.5 mg PO DAILY 10/01/22 10/06/22 09/30/22 History famotidine 20 mg tablet 20 mg PO BID PRN Heartburn 10/01/22 10/06/22 Unknown History nystatin 100,000 unit/gram topical 1 applic topical TID PRN Rash 10/01/22 10/06/22 Unknown History cream mupirocin 2 % topical ointment 1 applic topical BID #15 grams 10/06/22 10/06/22 Unknown Rx Allergies Allergy/AdvReac Type Severity Reaction Status Date / Time No Known Allergies Allergy Verified 10/06/22 09:38 PFSH Acute PFSH: Medical History Dysuria History of heart attack History of urethrocutaneous fistula HIV positive Surgical History Hx of colonoscopy Hx of heart artery stent total of 3 stents Family History Father No problems noted. Mother No problems noted. Social History Smoking and tobacco status: never smoked Alcohol intake: current Alcohol intake frequency: holidays/special occasions only Marital status: Single Current occupational status: employed History of recent travel: No A&P Assessment and plan (1) Colon cancer screening: Plan Colonoscopy Attestations Medical Necessity Statement*: Home Coding Level of Care Code Acute Manufacturing Storeperson for Janette Fwd Diagnoses Colon cancer screening Z12.11
[2022-10-07 06:49] VITALS: BP 131/87; PULSE 94; RESP 18; TEMP 36.5; O2SAT 96
[2022-10-07] MEDS: sodium chloride 0.9% 1,000 ML 30 ML IV (06:55)
[2022-10-07 06:56] LABS: Glucose Point of Care 133 mg/dL (70-110)
--- NOTE | 2022-10-07 07:39 | P.ANESASSM_ITS ---
Pre-Anesthetic Assessment Height/Weight: Height 1.78 m Weight 86.183 kg Temp Pulse Resp BP Pulse Ox O2 Del Method 97.7 F 94 18 131/87 96 10/07/22 06:49 10/07/22 06:49 10/07/22 06:49 10/07/22 06:49 10/07/22 06:49 10/07/22 06:49 Operation Date: 10/07/22 08:00 Proposed Procedures p Colonoscopy 41288,Z12.11(Not Applicable) - Petros Giraldo DO Familial anesthetic complications: None Was Beta Sid taken within 24 hours: N/A Was Clonidine taken within 24 hours: N/A Last intake: Intake Last Liquid Date 10/06/22 Last Liquid Time 22:00 Last Solid Date 10/05/22 Last Solid Time 18:00 Social No alcohol and No tobacco Exam alert, oriented x 3, clear to auscultation bilaterally and regular rate & rhythm Airway Mallampati: Class II Dentition: partials CV/HEM Hypertension GI Gastroesophageal Reflux Disease Metabolic Diabetes Mellitus HIV, syphilis, genital HSV Anesthetic Plan ASA status: 3 Anesthesia: MAC Risk of > 500 ml blood loss (7ml/kg in children): No Medications/Allergies Home Medications Medication Instructions Recorded Confirmed Last Taken Type loratadine 10 mg tablet (Claritin) 10 mg PO DAILY 05/20/21 10/07/22 10/05/22 History sulfamethoxazole 800 1 tab PO .mwf 90 days #30 tabs 07/22/21 10/07/22 10/05/22 Rx mg-trimethoprim 160 mg tablet (Bactrim DS) vitamin B complex (B 1 tab PO DAILY #30 tabs 04/28/22 10/07/22 10/05/22 Rx Complex-Vitamin B12 tablet) bictegravir 50 mg-emtricitabine 1 tab PO DAILY #90 tabs 05/01/22 10/07/22 10/05/22 Rx 200 mg-tenofovir alafenam 25 mg tablet (Biktarvy) lancets 30 gauge (OneTouch Delica ##100 08/11/22 10/07/22 10/05/22 Rx Plus Lancet) polymyxin B sulfate 10,000 1 drp ophthalmic (eye) Q3H 10 days 08/28/22 10/07/22 10/05/22 Rx unit-trimethoprim 1 mg/mL eye drops #10 mL blood sugar diagnostic (OneTouch #300 strips 09/02/22 10/07/22 10/05/22 Rx Ultra Test strips) cholecalciferol (vitamin D3) 50 50 mcg PO DAILY 30 days #90 caps 09/02/22 10/07/22 10/05/22 Rx mcg (2,000 unit) capsule metformin 500 mg tablet 500 mg PO BID #180 tabs 09/02/22 10/07/22 10/05/22 Rx pregabalin 25 mg capsule (Lyrica) 25 mg PO TID #90 caps 09/02/22 10/07/22 10/05/22 Rx semaglutide 0.25 mg or 0.5 mg (2 0.5 mg (0.4 mL) SUBCUT .weekly 09/02/22 1 12/08/21 10/05/22 Rx mg/1.5 mL) subcutaneous pen #1.5 mL injector (Ozempic) valacyclovir 1 gram tablet 1,000 mg PO DAILY 30 days #90 tabs 09/02/22 10/07/22 10/05/22 Rx (Valtrex) clonazepam 0.5 mg tablet 0.5 mg PO DAILY 10/01/22 10/07/22 10/05/22 History famotidine 20 mg tablet 20 mg PO BID PRN Heartburn 10/01/22 10/07/22 10/05/22 History nystatin 100,000 unit/gram topical 1 applic topical TID PRN Rash 10/01/22 10/07/22 10/05/22 History cream mupirocin 2 % topical ointment 1 applic topical BID #15 grams 10/06/22 10/07/22 10/05/22 Rx Allergies Allergy/AdvReac Type Severity Reaction Status Date / Time No Known Allergies Allergy Verified 10/07/22 06:59 Current Medications Generic Name Dose Route Start Last Admin Trade Name Freq PRN Reason Stop Dose Admin Sodium Chloride 1,000 mls @ 30 mls/hr 10/07/22 06:45 10/07/22 06:55 Sodium Chloride 0.9% IV 10/08/22 06:44 30 mls/hr .Q24H ARMANDO Administration PFSH Anesthesia Medical History Dysuria History of heart attack History of urethrocutaneous fistula HIV positive Surgical History Hx of colonoscopy Hx of heart artery stent total of 3 stents Family History Father No problems noted. Mother No problems noted. Social History Smoking and tobacco status: never smoked Alcohol intake: current Alcohol intake frequency: holidays/special occasions only Marital status: Single Current occupational status: employed History of recent travel: No Data Anesthesia Cardiac Studies: No Data to Display
[2022-10-07 08:48] VITALS: BP 91/56; PULSE 91; RESP 16; TEMP 36.4; O2SAT 96
[2022-10-07 09:10] VITALS: BP 105/71; PULSE 102; RESP 16; O2SAT 94
--- NOTE | 2022-10-07 12:05 | ANE.PACU2 ---
Inpatient post-anesthesia follow up: Airway intact: Yes Vital signs: Temperature 97.6 F Pulse Rate 102 Respiratory Rate 16 Blood Pressure 105/71 Pulse Oximetry 94 Oxygen Delivery Me thod Room Air Oxygen Flow Rate Fraction of Inspir ed Oxygen Hydration adequate: Yes Nausea and vomiting: No Pain level: 1 Mental status: Baseline
== END 2022-10-07 09:25 | disposition home or self-care (01) ==
PROVIDERS: PCP Family Medicine; Visit Provider Surgery
PROC: 0DJD8ZZ Inspection of Lower Intestinal Tract, Via Natural or Artificial Opening Endoscopic (ICD-10-PCS; CPT 45378; principal; 2022-10-07 08:00)
DX: Z12.11 Encounter for screening for malignant neoplasm of colon (principal); I25.2 Old myocardial infarction; Z95.5 Presence of coronary angioplasty implant and graft; I10 Essential (primary) hypertension; K21.9 Gastro-esophageal reflux disease without esophagitis; E11.9 Type 2 diabetes mellitus without complications; Z79.84 Long term (current) use of oral hypoglycemic drugs
CPT/HCPCS: 36416; 45378; 82962; J2704; J7030

== ENCOUNTER 2022-10-26 12:30 | Outpatient (CLI) | payer MEDICAID, SELFPAY ==
[2022-10-27 22:50] LABS: HIV RNA (CPY/ML) 1.54 (NOT DETECTED); HIV RNA LOG 35 copies/mL (NOT DETECTED)
[2022-10-29 05:03] LABS: Absolute CD4 + Cells 297 cells/uL (490-1740); Absolute Lymphocytes 2484 cells/uL (850-3900); Absoulte CD8+Cells 1720 cells/uL (180-1170); CD4/CD8 Ratio 0.17 (0.86-5.00); Percent CD8 69 % (12-42); Percentage CD4 12 % (30-61)
== END 2022-10-26 12:31 | disposition home or self-care (01) ==
PROVIDERS: PCP Family Medicine; Visit Provider Student in an Organized Health Care Education/Training Program
DX: Z21 Asymptomatic human immunodeficiency virus [HIV] infection status (principal)
CPT/HCPCS: 36415; 86360; 87536